=== PATIENT | female | born 1955 | race Caucasian/White ===

== ENCOUNTER 2020-12-16 12:47 | Inpatient (IN) | payer OTHER ==
[~2020-12-16] VITALS: Ht 172.7 cm; Wt 108.9 kg
[2020-12-16] MEDS ORDERED: SODIUM CHLORIDE 0.9% 1000ML 1,000 ML IV STA (13:07)
[2020-12-16] MEDS ORDERED: ONDANSETRON HCL INJ 2MG/ML 2ML 2 MG/ML VIAL IV STA ×2 (13:07→15:44)
[2020-12-16] MEDS ORDERED: ACETAMINOPHEN 325 MG TAB PO ONE (13:15)
[2020-12-16 13:19] LABS: BASOPHILS % 0.2 % (0.0-1.0); EOSINOPHILS % 0.2 % (0.0-6.0); HEMATOCRIT 46.7 % (34.2-44.1); HEMOGLOBIN 15.2 g/dL (12.0-16.0); LYMPHOCYTES # (AUTO) 0.5 (1.0-3.2); LYMPHOCYTES % 5.5 % (18.0-39.1); MEAN CORPUSCULAR HEMOGLOBIN 29.7 pg (28-32); MEAN CORPUSCULAR HGB CONC 32.5 g/dL (31-35); MEAN CORPUSCULAR VOLUME 91.2 fL (81-99); MONOCYTES # (AUTO) 0.5 (0.2-0.8); MONOCYTES % 5.1 % (4.4-11.3); NEUTROPHILS # (AUTO) 8.4 (2.1-6.9); NEUTROPHILS % 88.7 % (38.7-80.0); PLATELET COUNT 205 x10e3/uL (140-360); RED BLOOD COUNT 5.12 x10e6/uL (3.6-5.1); RED CELL DISTRIBUTION WIDTH 12.7 % (11.7-14.4)
[2020-12-16 13:37] LABS: ALBUMIN 4.1 g/dL (3.5-5.0); ALBUMIN/GLOBULIN RATIO 1.1 (0.8-2.0); ANION GAP 17.8 mmol/L (8-16); CALCIUM 9.1 mg/dL (8.4-10.2); CREATININE, SERUM 1.05 mg/dL (0.57-1.11); POTASSIUM 3.8 mmol/L (3.5-5.1)
[2020-12-16 13:43] LABS: CREATINE KINASE MB 0.7 ng/mL (0-5.0)
[2020-12-16] MEDS ORDERED: SODIUM CHLORIDE 0.9% 50ML 50 ML ONE (14:37)
[2020-12-16] MEDS ORDERED: IOPAMIDOL 370 MG/ML 200 ML INFUS..BTL INJ ONE (14:38)
[2020-12-16] MEDS ORDERED: MORPHINE SULFATE INJ 4 MG/ML INJ 1ML IV PRN (15:45)
[2020-12-16] MEDS ORDERED: DEXTROSE 5%/0.45% SOD CHL 1,000 ML IV ONE (16:15)
[2020-12-16] MEDS: FAMOTIDINE 20 MG/2 ML VIAL IV SCH (16:42)
[2020-12-16] MEDS: METRONIDAZOLE 500MG/NS 100ML 100 ML IV SCH (16:44)
[2020-12-16 17:30] LABS: BACTERIA,URINE MODERATE /HPF; CLARITY,URINE CLEAR (CLEAR); COLOR,URINE YELLOW (YELLOW); EPITHELIAL CELLS,URINE FEW /LPF; RBC,URINE 0-5 /HPF (0-5)
[2020-12-16 17:31] LABS: KETONES,URINE 1+ (NEGATIVE); LEUKOCYTE ESTERASE ,URINE NEGATIVE (NEGATIVE); NITRITE,URINE NEGATIVE (NEGATIVE); PROTEIN,URINE DIPSTICK NEGATIVE (NEGATIVE); URINE UROBILINOGEN 0.2 mg/dL (0.2 - 1)
[2020-12-16] MEDS: MORPHINE SULFATE INJ 4 MG/ML INJ 1ML IV PRN (20:12)
[2020-12-16] MEDS: ONDANSETRON HCL INJ 2MG/ML 2ML 2 MG/ML VIAL IV PRN (20:12)
[2020-12-16 20:17] VITALS: BP 112/63
[2020-12-16 20:40] VITALS: BP 112/63
[2020-12-16] MEDS ORDERED: ATORVASTATIN CA20 MG (21:53)
[2020-12-16] MEDS ORDERED: IPRATROPIUM BRO15 ML (21:53)
[2020-12-16] MEDS ORDERED: PREGABALIN150 MG PO (21:53)
[2020-12-16] MEDS ORDERED: RIZATRIPTAN10 M1 (21:53)
[2020-12-16] MEDS ORDERED: TRULICITY1.5 MG/0.5 (21:53)
[2020-12-16] MEDS ORDERED: MULTI-VITAMIN1 EACH PO (21:53)
[2020-12-16] MEDS ORDERED: GLIPIZIDE ER10 MG (21:53)
[2020-12-16] MEDS ORDERED: BACLOFEN10 MG (21:53)
[2020-12-16] MEDS ORDERED: NAPROXEN500 MG (21:53)
[2020-12-16] MEDS ORDERED: ALPRAZOLAM0.25 MG (21:53)
[2020-12-16] MEDS ORDERED: JARDIANCE10 MG (21:53)
[2020-12-16] MEDS ORDERED: LISINOPRIL-HCT1 EAC1 (21:53)
[2020-12-16] MEDS ORDERED: AZELASTINE137 MCG/0. (21:53)
[2020-12-16] MEDS ORDERED: TYLENOL # 31 EA (21:53)
[2020-12-16] MEDS ORDERED: PENICILLIN V P500 MG (21:53)
[2020-12-16] MEDS ORDERED: FISH OIL 1,0001 EAC3 (21:53)
[2020-12-16] MEDS ORDERED: LIDOCAINE1 EA (21:53)
[2020-12-16] MEDS: DEXTROSE 5%/0.9% SOD CHL 1,000 ML IV SCH (22:18)
[2020-12-16 23:57] VITALS: BP 112/63
[2020-12-17] VITALS (8 sets, daily range): BP systolic 92–118; BP diastolic 53–70
[2020-12-17] MEDS: METRONIDAZOLE 500MG/NS 100ML 100 ML IV SCH ×3 (00:38→16:01)
[2020-12-17 05:57] LABS: BASOPHILS % 0.6 % (0.0-1.0); HEMATOCRIT 38.6 % (34.2-44.1); HEMOGLOBIN 12.8 g/dL (12.0-16.0); LYMPHOCYTES # (AUTO) 0.8 (1.0-3.2); LYMPHOCYTES % 14.3 % (18.0-39.1); MEAN CORPUSCULAR HEMOGLOBIN 30.4 pg (28-32); MEAN CORPUSCULAR HGB CONC 33.2 g/dL (31-35); MEAN CORPUSCULAR VOLUME 91.7 fL (81-99); MONOCYTES # (AUTO) 0.3 (0.2-0.8); MONOCYTES % 5.8 % (4.4-11.3); NEUTROPHILS # (AUTO) 4.2 (2.1-6.9); NEUTROPHILS % 78.9 % (38.7-80.0); PLATELET COUNT 155 x10e3/uL (140-360); RED BLOOD COUNT 4.21 x10e6/uL (3.6-5.1); RED CELL DISTRIBUTION WIDTH 12.8 % (11.7-14.4)
[2020-12-17 06:27] LABS: ALANINE AMINOTRANSFERASE 29 IU/L (0-55); ALKALINE PHOSPHATASE 47 IU/L (40-150); ANION GAP 12.2 mmol/L (8-16); BLOOD UREA NITROGEN 22 mg/dL (7-26); BUN/CREATININE RATIO 28 (6-25); CALCIUM 7.6 mg/dL (8.4-10.2); CARBON DIOXIDE 25 mmol/L (22-29); CHLORIDE 103 mmol/L (98-107); EST GLOMERULAR FILTRATION RATE > 60 ML/MIN (60-); GLUCOSE 218 mg/dL (74-118); POTASSIUM 3.2 mmol/L (3.5-5.1); SODIUM 137 mmol/L (136-145)
[2020-12-17 06:55] LABS: CREATINE KINASE MB 1.1 ng/mL (0-5.0)
[2020-12-17 07:10] LABS: AMYLASE 15 U/L (25-125); LIPASE 10 U/L (8-78)
[2020-12-17] MEDS: INSULIN LISPRO 100 UNIT/1 ML 3ML VIAL SQ SCH ×4 (07:30→20:40)
[2020-12-17] MEDS: DEXTROSE 5%/0.9% SOD CHL 1,000 ML IV SCH ×2 (07:45→17:45)
[2020-12-17] MEDS: FAMOTIDINE 20 MG/2 ML VIAL IV SCH ×2 (08:10→16:01)
[2020-12-17] MEDS: ONDANSETRON HCL INJ 2MG/ML 2ML 2 MG/ML VIAL IV PRN ×3 (08:10→20:30)
[2020-12-17] MEDS: MORPHINE SULFATE INJ 4 MG/ML INJ 1ML IV PRN ×3 (08:10→20:30)
[2020-12-17] MEDS ORDERED: POTASSIUM CHLORIDE 20 MEQ TAB CR PO STA (10:12)
[2020-12-18] VITALS (9 sets, daily range): BP systolic 107–137; BP diastolic 57–74
[2020-12-18] MEDS: ONDANSETRON HCL INJ 2MG/ML 2ML 2 MG/ML VIAL IV PRN ×4 (00:36→21:09)
[2020-12-18] MEDS: METRONIDAZOLE 500MG/NS 100ML 100 ML IV SCH ×3 (00:36→16:30)
[2020-12-18] MEDS: MORPHINE SULFATE INJ 4 MG/ML INJ 1ML IV PRN ×4 (00:36→21:09)
[2020-12-18] MEDS: DEXTROSE 5%/0.9% SOD CHL 1,000 ML IV SCH ×2 (02:33→17:53)
[2020-12-18 06:36] LABS: INR 0.95; PROTHROMBIN TIME 13.2 seconds (11.9-14.5)
[2020-12-18 06:53] LABS: ALANINE AMINOTRANSFERASE 33 IU/L (0-55); ALBUMIN 2.8 g/dL (3.5-5.0); ALBUMIN/GLOBULIN RATIO 0.9 (0.8-2.0); ALKALINE PHOSPHATASE 53 IU/L (40-150); ANION GAP 9.8 mmol/L (8-16); BLOOD UREA NITROGEN 11 mg/dL (7-26); BUN/CREATININE RATIO 16 (6-25); CALCIUM 7.7 mg/dL (8.4-10.2); CARBON DIOXIDE 26 mmol/L (22-29); CHLORIDE 106 mmol/L (98-107); CREATININE, SERUM 0.68 mg/dL (0.57-1.11); EST GLOMERULAR FILTRATION RATE > 60 ML/MIN (60-); GLUCOSE 175 mg/dL (74-118); POTASSIUM 3.8 mmol/L (3.5-5.1); SODIUM 138 mmol/L (136-145)
[2020-12-18] MEDS: INSULIN LISPRO 100 UNIT/1 ML 3ML VIAL SQ SCH ×4 (07:30→21:27)
[2020-12-18] MEDS: FAMOTIDINE 20 MG/2 ML VIAL IV SCH ×2 (08:20→16:30)
[2020-12-18] MEDS: PANTOPRAZOLE 40 MG 10ML VIAL IV SCH ×2 (14:18→21:08)
[2020-12-19] VITALS (8 sets, daily range): BP systolic 112–141; BP diastolic 59–79
[2020-12-19] MEDS: METRONIDAZOLE 500MG/NS 100ML 100 ML IV SCH ×3 (01:09→17:42)
[2020-12-19] MEDS: ONDANSETRON HCL INJ 2MG/ML 2ML 2 MG/ML VIAL IV PRN ×3 (01:16→14:06)
[2020-12-19] MEDS: MORPHINE SULFATE INJ 4 MG/ML INJ 1ML IV PRN ×3 (01:16→14:06)
[2020-12-19] MEDS: DEXTROSE 5%/0.9% SOD CHL 1,000 ML IV SCH ×2 (05:59→09:45)
[2020-12-19] MEDS: INSULIN LISPRO 100 UNIT/1 ML 3ML VIAL SQ SCH ×4 (07:30→21:00)
[2020-12-19] MEDS: FAMOTIDINE 20 MG/2 ML VIAL IV SCH (08:31)
[2020-12-19] MEDS: PANTOPRAZOLE 40 MG 10ML VIAL IV SCH (08:31)
[2020-12-19] MEDS ORDERED: SIMETHICONE 80 MG CHEW PO PRN (15:15)
[2020-12-19] MEDS ORDERED: PROMETHAZINE HCL 25 MG TAB PO PRN (20:15)
[2020-12-19] MEDS: TRAMADOL HCL 50 MG TAB PO PRN (20:29)
[2020-12-19] MEDS ORDERED: PROMETHAZINE HCL 25 MG TAB ONE (20:41)
[2020-12-19] MEDS ORDERED: TRAMADOL HCL 50 MG TAB ONE (20:41)
[2020-12-20 00:30] VITALS: BP 133/82
[2020-12-20 04:52] VITALS: BP 140/81
[2020-12-20 08:01] VITALS: BP 141/66
[2020-12-20 08:12] VITALS: BP 141/66
[2020-12-20] MEDS: INSULIN LISPRO 100 UNIT/1 ML 3ML VIAL SQ SCH ×2 (08:12→11:16)
[2020-12-20] MEDS: TRAMADOL HCL 50 MG TAB PO PRN ×2 (08:19→13:39)
[2020-12-20] MEDS ORDERED: TRAMADOL HCL 50 MG TAB ONE (08:25)
[2020-12-20] MEDS ORDERED: PANTOPRAZOLE SOD 40 MG TABEC PO SCH (10:30)
[2020-12-20] MEDS ORDERED: PANTOPRAZOLE SOD 40 MG TABEC ONE (11:18)
[2020-12-20 11:55] VITALS: BP 154/61
[2020-12-20] MEDS ORDERED: PROMETHAZINE HC25 M1 PO (13:54)
[2020-12-20] MEDS ORDERED: PROTONIX40 MG/ML PO (13:54)
[2020-12-20] MEDS ORDERED: ULTRAM 50MG50 MG PO (13:54)
== END 2020-12-20 14:59 | disposition home or self-care (01) | DRG 392 ==
LOC: ER 13:07 → ERHOLD 16:04 → MED/SURG2 18:35
PROVIDERS: ADMIT Internal Medicine; ATTEND Internal Medicine
PROC: 0DB78ZX Excision of Stomach, Pylorus, Via Natural or Artificial Opening Endoscopic, Diagnostic (ICD-10-PCS; 2020-12-18)
PROC: 0DB68ZX Excision of Stomach, Via Natural or Artificial Opening Endoscopic, Diagnostic (ICD-10-PCS; 2020-12-18)
PROC: 0DB98ZX Excision of Duodenum, Via Natural or Artificial Opening Endoscopic, Diagnostic (ICD-10-PCS; principal; 2020-12-18 11:30)
DX: K52.9 Noninfective gastroenteritis and colitis, unspecified (principal); K29.70 Gastritis, unspecified, without bleeding; E11.65 Type 2 diabetes mellitus with hyperglycemia; I10 Essential (primary) hypertension; Z20.822 Contact with and (suspected) exposure to COVID-19; K20.90 Esophagitis, unspecified without bleeding; E78.5 Hyperlipidemia, unspecified; E87.6 Hypokalemia
CPT/HCPCS: 36415; 43239; 71045; 74019; 74177; 80053; 81001; 82150; 82550; 82553; 82948; 83630; 83690; 84484; 85025; 85610; 87045; 87177; 87493; 88305; 88312; 94660; 96361; 99284; J2270; J2405; J7030; J7042; Q9967; U0002

== ENCOUNTER 2021-07-28 09:14 | Emergency (ER) | payer OTHER ==
[~2021-07-28] VITALS: Ht 172.7 cm; Wt 109.3 kg
[~2021-07-28 09:14] MED LIST: ALPRAZOLAM0.25 MG; ATORVASTATIN CA20 MG; AZELASTINE137 MCG/0.; BACLOFEN10 MG; FISH OIL 1,0001 EAC3; GLIPIZIDE ER10 MG; IPRATROPIUM BRO15 ML; JARDIANCE10 MG; LIDOCAINE1 EA; LISINOPRIL-HCT1 EAC1; MULTI-VITAMIN1 EACH PO; NAPROXEN500 MG; PENICILLIN V P500 MG; PREGABALIN150 MG PO; PROMETHAZINE HC25 M1 PO; PROTONIX40 MG/ML PO; RIZATRIPTAN10 M1; TRULICITY1.5 MG/0.5; TYLENOL # 31 EA; ULTRAM 50MG50 MG PO
[2021-07-28] MEDS ORDERED: BACTRIM DS TAB1 EACH PO (10:14)
== END 2021-07-28 10:36 | disposition home or self-care (01) ==
LOC: FSED 09:55
DX: L02.411 Cutaneous abscess of right axilla (principal); I10 Essential (primary) hypertension; E11.9 Type 2 diabetes mellitus without complications; E78.5 Hyperlipidemia, unspecified
CPT/HCPCS: 99282

== ENCOUNTER 2021-09-11 15:54 | Emergency (ER) | payer OTHER ==
[~2021-09-11] VITALS: Ht 172.7 cm; Wt 109.3 kg
[~2021-09-11 15:54] MED LIST changes: +BACTRIM DS TAB1 EACH PO
[2021-09-11] MEDS ORDERED: ONDANSETRON HCL INJ 2MG/ML 2ML 2 MG/ML VIAL IV STA (16:41)
[2021-09-11 16:45] LABS: BASOPHILS % 0.4 % (0.0-1.0); EOSINOPHILS % 0.7 % (0.0-6.0); HEMATOCRIT 46.9 % (34.2-44.1); HEMOGLOBIN 15.4 g/dL (12.0-16.0); LYMPHOCYTES # (AUTO) 1.2 (1.0-3.2); LYMPHOCYTES % 26.9 % (18.0-39.1); MEAN CORPUSCULAR HGB CONC 32.8 g/dL (31-35); MEAN CORPUSCULAR VOLUME 91.2 fL (81-99); MONOCYTES # (AUTO) 0.3 (0.2-0.8); MONOCYTES % 7.5 % (4.4-11.3); NEUTROPHILS # (AUTO) 2.9 (2.1-6.9); NEUTROPHILS % 64.1 % (38.7-80.0); PLATELET COUNT 209 x10e3/uL (140-360); RED BLOOD COUNT 5.14 x10e6/uL (3.6-5.1); RED CELL DISTRIBUTION WIDTH 13.2 % (11.7-14.4)
[2021-09-11 16:57] LABS: INR 0.88; PROTHROMBIN TIME 12.7 seconds (11.9-14.5)
[2021-09-11 16:58] LABS: PARTIAL THROMBOPLASTIN TIME 22.2 seconds (23.8-35.5)
[2021-09-11 17:08] LABS: ALANINE AMINOTRANSFERASE 31 IU/L (0-55); ALBUMIN 4.3 g/dL (3.5-5.0); ALBUMIN/GLOBULIN RATIO 1.1 (0.8-2.0); ALKALINE PHOSPHATASE 94 IU/L (40-150); ANION GAP 18.5 mmol/L (8-16); CALCIUM 9.4 mg/dL (8.4-10.2); CARBON DIOXIDE 27 mmol/L (22-29); CHLORIDE 96 mmol/L (98-107); CREATINE KINASE 49 IU/L (29-168); CREATININE, SERUM 0.98 mg/dL (0.57-1.11); EST GLOMERULAR FILTRATION RATE 57 ML/MIN (60-); GLUCOSE 177 mg/dL (74-118); POTASSIUM 3.5 mmol/L (3.5-5.1); SODIUM 138 mmol/L (136-145)
[2021-09-11 17:21] LABS: BLOOD UREA NITROGEN 17 mg/dL (7-26); BUN/CREATININE RATIO 18 (6-25)
[2021-09-11] MEDS ORDERED: SODIUM CHLORIDE 0.9% 1000ML 1,000 ML IV STA (17:21)
[2021-09-11] MEDS ORDERED: DIPHENHYDRAMINE HCL INJ 50 MG/ML VIAL IV ONE (17:30)
[2021-09-11] MEDS ORDERED: METOCLOPRAMIDE HCL 10 MG/2ML VIAL IV ONE (17:30)
[2021-09-11 18:28] LABS: CLARITY,URINE CLOUDY (CLEAR); COLOR,URINE YELLOW (YELLOW); KETONES,URINE 2+ (NEGATIVE); LEUKOCYTE ESTERASE ,URINE NEGATIVE (NEGATIVE); NITRITE,URINE NEGATIVE (NEGATIVE); PROTEIN,URINE DIPSTICK NEGATIVE (NEGATIVE)
[2021-09-11 18:29] LABS: URINE UROBILINOGEN 0.2 mg/dL (0.2 - 1)
[2021-09-11 18:45] LABS: BACTERIA,URINE MANY /HPF; EPITHELIAL CELLS,URINE MANY /LPF
[2021-09-11] MEDS ORDERED: REGLAN10 MG PO (19:40)
[2021-09-11 19:57] VITALS: BP 108/66
== END 2021-09-11 19:55 | disposition home or self-care (01) ==
LOC: ER 16:14
DX: R07.89 Other chest pain (principal); G44.209 Tension-type headache, unspecified, not intractable; E11.65 Type 2 diabetes mellitus with hyperglycemia; I10 Essential (primary) hypertension; E78.5 Hyperlipidemia, unspecified
CPT/HCPCS: 36415; 70450; 71045; 80053; 81001; 82550; 82553; 83735; 84484; 85025; 85610; 85730; 93005; 99284; J1200; J2405; J2765; J7030